=== PATIENT | male | born 1965 | race Caucasian/White ===

== ENCOUNTER 2016-12-31 23:22 | Observation (INO) | payer MEDICARE, MEDICAID ==
[~2016-12-31 23:22] MED LIST: ABILIFY10 MG; ABILIFY30 MG; ALTACE2.5 MG; ASPIRIN BUFFER325 MG; ASPIRIN EC81 MG PO; BENZTROPINE MESY1 M1 PO; CATAPRES0.1 M1 PO; CLARITIN10 MG; CYCLOBENZAPRINE5 M1 PO; DEPAKOTE ER500 M1 PO; DEPAKOTE250 M1 PO; DEPAKOTE500 MG; ERYTHROMYCIN500 MG PO; FAMOTIDINE20 MG; GEMFIBROZIL600 M2 PO; GEODON80 MG; IBUPROFEN800 M1 PO; INVEGA6 MG PO; LAMOTRIGINE100 M2 PO; LAMOTRIGINE25 M3 PO; LIPITOR40 M1 PO; LISINOPRIL5 M1 PO; MELATONIN3 M4 PO; MULTIVITAMINS1 EAC7 PO; NIASPAN1000 MG; PREDNISONE20 M1 PO; SEROQUEL300 MG; SINGULAIR10 MG; TENORMIN25 M1 PO; TOPROL XL25 MG; TRICOR145 MG; ULTRAM50 M1 PO; WELLBUTRIN XL150 MG; ZETIA10 MG
[2017-01-01 00:46] LABS: BASO % 0.3 % (0-2); EOSINOPHIL ABSOLUTE COUNT 0.1 tho/cmm (0.0-0.7); HCT-HEMATOCRIT 37.4 % (36.0-53.5); HGB-HEMOGLOBIN 13.2 gm/dl (13.5-17.0); IMMATURE GRANULOCYTES ABSOLUTE 0.02 tho/cmm (0-0.03); IMMATURE GRANULOCYTES PERCENT 0.2 % (0-0.3); LYMPH % 8.5 % (20-45); LYMPH ABSOLUTE COUNT 1.1 tho/cmm (0.8-4.5); MCH (MEAN CORPUSCULAR HGB) 31.4 pg (28.0-32.0); MCHC MEAN CORPUSCULAR HGB CONC 35.3 % (32.0-36.0); MEAN PLATELET VOLUME 9.9 cmc (9.4-12.4); MONO % 7.4 % (0-12); NEUTROPHIL ABSOLUTE COUNT 10.8 tho/cmm (1.6-8.0); NEUTROPHIL-AUTOMATED 10.8 tho/cmm (1.6-8.0); NEUTROPHILS % 82.6 % (40-80); PLATELET COUNT 204 tho/cmm (150-450); RED CELL DISTRIBUTION WIDTH 13.5 % (12.4-16.4); WHITE BLOOD COUNT 13.1 tho/cmm (4.0-10.0)
[2017-01-01 01:06] LABS: ALB/GLOB RATIO 1.1 (0.8-2.0); ALBUMIN 3.9 g/dl (3.5-5.0); ALCOHOL (ETOH) <10 mg/dl (<10); ALKALINE PHOSPHATASE 68 U/L (33-138); ALT/SGPT 16 U/L (12-78); ANION GAP 10 mmol/L (0-20); AST/SGOT 14 U/L (10-40); BILIRUBIN,TOTAL 0.2 mg/dl (0.0-1.5); BLOOD UREA NITROGEN 16 mg/dl (6-24); CALCIUM 9.2 mg/dl (8.5-10.5); CARBON DIOXIDE-VENOUS 28 mmol/L (22-32); CHLORIDE 103 mmol/l (96-110); CREATININE 0.79 mg/dl (0.60-1.30); GLUCOSE 141 mg/dL (70-110); LIPASE 187 U/L (73-393); POTASSIUM 4.2 mmol/L (3.7-5.1); SODIUM 137 mmol/L (135-145); eGFR VALUE FOR BLACK >90 mL/Min
[2017-01-01 01:28] LABS: URINE BILIRUBIN NEGATIVE (NEG); URINE BLOOD NEGATIVE (NEG); URINE GLUCOSE (UA) NEGATIVE (NEG); URINE KETONE NEGATIVE (NEG); URINE LEUKOCYTE ESTERASE NEGATIVE (NEG); URINE NITRITE NEGATIVE (NEG); URINE PROTEIN NEGATIVE (NEG)
[2017-01-01 01:30] LABS: URINE APPEARANCE CLEAR; URINE COLOR YELLOW
[2017-01-01 07:42] LABS: BASO % 0.5 % (0-2); BASO ABSOLUTE COUNT 0.1 tho/cmm (0.0-0.2); EOS % 1.8 % (0-7); EOSINOPHIL ABSOLUTE COUNT 0.2 tho/cmm (0.0-0.7); HCT-HEMATOCRIT 37.9 % (36.0-53.5); HGB-HEMOGLOBIN 13.2 gm/dl (13.5-17.0); IMMATURE GRANULOCYTES ABSOLUTE 0.03 tho/cmm (0-0.03); IMMATURE GRANULOCYTES PERCENT 0.3 % (0-0.3); LYMPH % 24.2 % (20-45); LYMPH ABSOLUTE COUNT 2.3 tho/cmm (0.8-4.5); MCHC MEAN CORPUSCULAR HGB CONC 34.8 % (32.0-36.0); MEAN PLATELET VOLUME 9.8 cmc (9.4-12.4); MONO % 7.6 % (0-12); MONOCYTE ABSOLUTE COUNT 0.7 tho/cmm (0.0-1.2); NEUTROPHIL ABSOLUTE COUNT 6.3 tho/cmm (1.6-8.0); NEUTROPHIL-AUTOMATED 6.3 tho/cmm (1.6-8.0); NEUTROPHILS % 65.6 % (40-80); PLATELET COUNT 216 tho/cmm (150-450); RED BLOOD COUNT 4.26 mil/cmm (4.40-5.70); RED CELL DISTRIBUTION WIDTH 13.6 % (12.4-16.4); WHITE BLOOD COUNT 9.5 tho/cmm (4.0-10.0)
[2017-01-01 07:50] LABS: ANION GAP 10 mmol/L (0-20); BLOOD UREA NITROGEN 12 mg/dl (6-24); CALCIUM 8.7 mg/dl (8.5-10.5); CARBON DIOXIDE-VENOUS 30 mmol/L (22-32); CHLORIDE 104 mmol/l (96-110); CREATININE 0.68 mg/dl (0.60-1.30); GLUCOSE 111 mg/dL (70-110); POTASSIUM 3.7 mmol/L (3.7-5.1); SODIUM 140 mmol/L (135-145); eGFR VALUE FOR BLACK >90 mL/Min
== END 2017-01-01 10:00 | disposition left against medical advice (07) ==
LOC: EDMED 23:22 → EMR2 01-01 03:01 → CAR1 01-01 03:26
PROVIDERS: Emergency Medicine; Registered Nurse; ADMIT Hospitalist
DX: F23 Brief psychotic disorder (principal); F22 Delusional disorders; R05 Cough; R11.2 Nausea with vomiting, unspecified; D72.829 Elevated white blood cell count, unspecified; R73.9 Hyperglycemia, unspecified; F43.10 Post-traumatic stress disorder, unspecified; F20.9 Schizophrenia, unspecified; F41.9 Anxiety disorder, unspecified; G24.9 Dystonia, unspecified; I10 Essential (primary) hypertension; E78.5 Hyperlipidemia, unspecified; I25.10 Atherosclerotic heart disease of native coronary artery without angina pectoris; F41.0 Panic disorder [episodic paroxysmal anxiety]; F17.210 Nicotine dependence, cigarettes, uncomplicated; F12.90 Cannabis use, unspecified, uncomplicated; Z79.899 Other long term (current) drug therapy; Z91.14 Patient's other noncompliance with medication regimen; Z88.0 Allergy status to penicillin; Z88.1 Allergy status to other antibiotic agents; Z88.5 Allergy status to narcotic agent; Z88.8 Allergy status to other drugs, medicaments and biological substances; Z95.5 Presence of coronary angioplasty implant and graft; Z98.890 Other specified postprocedural states
CPT/HCPCS: G0378; G0480; G8978-GP-CI; G8979-GP-CI; G8980-GP-CI; J2060; J2405; J7030